=== PATIENT | male | born 1980 | race Caucasian/White ===

== ENCOUNTER 2016-10-24 10:23 | Emergency (ER) | payer OTHER, MEDICAID ==
[~2016-10-24] VITALS: Ht 182.9 cm; Wt 98.4 kg
[2016-10-24 11:13] LABS: BASOPHIL % 0.4 % (0-2); PLATELET COUNT 160 x10^3mcL (130-400); RED CELL DISTRIBUTION WIDTH 13.6 % (11.5-14.5)
[2016-10-24 11:19] LABS: CARBON DIOXIDE 28.1 mmol/L (21-32); CHLORIDE SERUM 100 mmol/L (98-107); POTASSIUM SERUM 3.8 mmol/L (3.5-5.1); SODIUM SERUM 136 mmol/L (136-145)
[2016-10-24 11:20] LABS: CALCIUM 8.5 mg/dL (8.5-10.1); GFR1 > 60 mL/min; GLUCOSE SERUM 123 mg/dL (74-106)
[2016-10-24 11:22] LABS: ALBUMIN 3.7 g/dL (3.4-5.0); LIPASE 124 IU/L (73-393)
[2016-10-24 11:41] LABS: ALT/SGPT 57 U/L (16-63); AST/SGOT 20 U/L (15-37); BILIRUBIN TOTAL 1.52 mg/dL (0.20-1.00); TOTAL PROTEIN, SERUM 6.8 g/dL (6.4-8.2)
[2016-10-24 11:55] LABS: ALKALINE PHOSPHATASE 43 U/L (46-116)
[2016-10-24 14:01] VITALS: BP 135/85
== END 2016-10-24 14:01 | disposition home or self-care (01) ==
LOC: ED 10:23
PROVIDERS: Emergency Medicine
DX: E86.0 Dehydration (principal); I10 Essential (primary) hypertension; E11.9 Type 2 diabetes mellitus without complications; Z79.899 Other long term (current) drug therapy
CPT/HCPCS: 82962; J2405; J7030

== ENCOUNTER 2017-07-07 05:57 | Emergency (ER) | payer BC, OTHER ==
[~2017-07-07] VITALS: Ht 182.9 cm; Wt 96.2 kg
[2017-07-07 06:38] VITALS: BP 163/122; Ht 182.9 cm; Wt 96.2 kg
== END 2017-07-07 10:10 | disposition home or self-care (01) ==
LOC: ED 05:57
DX: S39.012A Strain of muscle, fascia and tendon of lower back, initial encounter (principal); I10 Essential (primary) hypertension; E11.9 Type 2 diabetes mellitus without complications; V49.9XXA Car occupant (driver) (passenger) injured in unspecified traffic accident, initial encounter; Y93.89 Activity, other specified; Y92.89 Other specified places as the place of occurrence of the external cause; Y99.8 Other external cause status

== ENCOUNTER 2017-11-08 09:02 | Emergency (ER) | payer BC ==
[~2017-11-08] VITALS: Ht 182.9 cm; Wt 98.4 kg
[2017-11-08 09:08] VITALS: Ht 182.9 cm; Wt 98.4 kg
[2017-11-08 09:56] LABS: BASOPHIL % 0.5 % (0-2); PLATELET COUNT 179 x10^3mcL (130-400); RED CELL DISTRIBUTION WIDTH 14.1 % (11.5-14.5)
[2017-11-08 10:01] LABS: CALCIUM 9.4 mg/dL (8.5-10.1); CARBON DIOXIDE 28.7 mmol/L (21-32); CHLORIDE SERUM 106 mmol/L (98-107); CREATININE SERUM 0.8 mg/dL (0.7-1.3); GFR1 > 60 mL/min; GLUCOSE SERUM 166 mg/dL (74-106); POTASSIUM SERUM 4.5 mmol/L (3.5-5.1); SODIUM SERUM 142 mmol/L (136-145)
[2017-11-08 10:06] LABS: ALBUMIN 3.9 g/dL (3.4-5.0); ALKALINE PHOSPHATASE 53 U/L (46-116); ALT/SGPT 101 U/L (16-63); AST/SGOT 31 U/L (15-37); TOTAL PROTEIN, SERUM 7.4 g/dL (6.4-8.2)
[2017-11-08 11:10] LABS: BILIRUBIN TOTAL 0.55 mg/dL (0.20-1.00)
[2017-11-08 12:53] VITALS: BP 121/72
== END 2017-11-08 12:53 | disposition home or self-care (01) ==
LOC: ED 09:02
PROVIDERS: Emergency Medicine
DX: R53.1 Weakness (principal); E11.9 Type 2 diabetes mellitus without complications; I10 Essential (primary) hypertension
CPT/HCPCS: 82962; 83880; J7030; Q0092

== ENCOUNTER 2018-04-30 19:08 | Emergency (ER) | payer BC ==
[~2018-04-30] VITALS: Ht 182.9 cm; Wt 95.8 kg
[2018-04-30 19:12] VITALS: Ht 182.9 cm; Wt 95.8 kg
[2018-04-30 21:22] VITALS: BP 133/94
== END 2018-04-30 21:22 | disposition home or self-care (01) ==
LOC: ED 19:08
DX: R07.81 Pleurodynia (principal); I10 Essential (primary) hypertension; E11.9 Type 2 diabetes mellitus without complications; G89.29 Other chronic pain; V49.9XXA Car occupant (driver) (passenger) injured in unspecified traffic accident, initial encounter; Y93.I9 Activity, other involving external motion; Y92.488 Other paved roadways as the place of occurrence of the external cause; Y99.8 Other external cause status
CPT/HCPCS: J1885